=== PATIENT | female | born 2000 | race Hispanic/Latino ===

== ENCOUNTER 2021-11-12 10:17 | Day surgery (SDC) | payer OTHER ==
[2021-11-12 11:06] VITALS: BMI 29.9
[2021-11-12] MEDS ORDERED: hydrALAZINE 20 MG/ML VIAL SLOW IVP PRN (11:30)
[2021-11-12 12:19] LABS: Fetal Membranes Rupture No Membranes Rupture (No Rupture)
== END 2021-11-12 13:40 | disposition home or self-care (01) ==
LOC: CSHLD/OP 10:17
PROVIDERS: ATTEND Student in an Organized Health Care Education/Training Program
DX: O47.1 False labor at or after 37 completed weeks of gestation (principal); Z3A.38 38 weeks gestation of pregnancy
CPT/HCPCS: 84112; 99284

== ENCOUNTER 2021-11-12 20:38 | Inpatient (IN) | payer MEDICAID, OTHER, SELFPAY ==
[2021-11-12 22:19] VITALS: BMI 32.8
[2021-11-12] MEDS ORDERED: Acetaminophen 500 MG TAB PO PRN (22:26)
[2021-11-12] MEDS ORDERED: hydrALAZINE 20 MG/ML VIAL SLOW IVP PRN ×2 (22:26→23:41)
[2021-11-12] MEDS ORDERED: Promethazine HCl 25 MG/ML VIAL IM PRN (22:26)
[2021-11-12] MEDS ORDERED: Ondansetron PF 4 MG/2 ML Vial IVP PRN (22:26)
[2021-11-12] MEDS ORDERED: Diphenoxylate HCl/Atropine Tablet PO PRN (22:45)
[2021-11-12] MEDS ORDERED: Carboprost 250 MCG/ML AMP IM PRN (22:45)
[2021-11-12] MEDS ORDERED: Misoprostol 200 MCG TAB PR PRN (22:45)
[2021-11-12] MEDS ORDERED: Methylergonovine 0.2 MG/ML VIAL IM PRN (22:45)
[2021-11-12] MEDS ORDERED: Ibuprofen 800 MG TAB PO PRN (22:45)
[2021-11-12] MEDS ORDERED: Lidocaine 1% (PF) 30 ML VIAL SC PRN (22:45)
[2021-11-12] MEDS ORDERED: NS w/ Oxytocin 30 units 500 ML IV SCH (23:00)
[2021-11-12 23:26] LABS: Hemoglobin 13.8 g/dL (12.0-15.5); Mean Corpuscular HGB CONC 35.5 g/dL (32.0-36.0); Mean Corpuscular Volume 84.6 fl (81.6-98.3); Mean Platelet Volume 12.4 fl (7.4-10.4); Platelet Count 191 10x3/uL (150-450); RBC Distribution Width 13.3 % (11.5-14.5)
[2021-11-12] MEDS ORDERED: Lorazepam 2 MG/ML VIAL SLOW IVP PRN (23:41)
[2021-11-12] MEDS ORDERED: Labetalol HCl 100 MG/20 ML VIAL SLOW IVP PRN ×2 (23:41)
[2021-11-12] MEDS ORDERED: Calcium Gluc 4.6 MEQ/10 ML (100 MG/ML) SLOW IVP PRN (23:41)
[2021-11-12] MEDS ORDERED: Magnesium Sulfate 20 gm/500 ml 20 GM/500 ML BAG IVPB SCH (23:45)
[2021-11-12] MEDS ORDERED: hydrALAZINE 20 MG/ML VIAL ONE (23:48)
[2021-11-12] MEDS ORDERED: Magnesium Sulfate 20 gm/500 ml 20 GM/500 ML BAG ONE (23:48)
[2021-11-12 23:56] LABS: Hep B Surf Ag Non-Reactive S/CO (NonReactive); Syphilis Antibody Nonreactive (Nonreactive); Syphilis Antibody Index 0.03 S/CO (<1.00 Non-Reactive)
[2021-11-13] LABS: HBSAg Index 0.17 S/CO (0-0.99)
[2021-11-13 00:34] LABS: ALT (SGPT) 17 U/L (8-55); AST (SGOT) 20 U/L (5-34); Albumin 3.5 g/dL (3.5-5.0); Alkaline Phosphatase 226 U/L (40-110); Anion Gap 18 mmol/L (10-20); BUN (Urea Nitrogen) 12 mg/dL (7.0-18.7); Bilirubin, Total 0.5 mg/dL (0.2-1.2); Calc. Creatinine Clearance 145 mL/min (70-130); Calcium 9.3 mg/dL (7.8-10.44); Carbon Dioxide 12 mmol/L (22-29); Chloride 111 mmol/L (98-107); Estimated GFR 119; Globulin 3.6 g/dL (2.4-3.5); Glucose 116 mg/dL (70-105); Potassium 3.6 mmol/L (3.5-5.1); Protein, Total 7.1 g/dL (6.0-8.3); Sodium 137 mmol/L (136-145)
[2021-11-13] MEDS ORDERED: diphenhydrAMINE 50 MG/ML VIAL IVP SCH (01:15)
[2021-11-13] MEDS ORDERED: Misoprostol 200 MCG TAB ONE (03:14)
[2021-11-13] MEDS ORDERED: Carboprost 250 MCG/ML AMP ONE (03:14)
[2021-11-13] MEDS ORDERED: Tranexamic Acid 1,000 MG/10 ML VIAL ONE (03:15)
[2021-11-13 05:31] LABS: SARS-CoV-2 NAA Rapid Test DETECTED (NotDetected)
[2021-11-13] MEDS ORDERED: diphenhydrAMINE 25 MG CAP PO PRN (07:30)
[2021-11-13] MEDS ORDERED: Milk Of Magnesia 30 ML UDCUP PO PRN (07:30)
[2021-11-13] MEDS ORDERED: Boostrix 0.5 ML (Tdap) VIAL IM ONE (07:30)
[2021-11-13] MEDS ORDERED: Lanolin Ointment 7 GM TUBE TOP PRN (07:30)
[2021-11-13] MEDS ORDERED: HYDROcodone/Acetaminophen 5/325 mg Tablet PO PRN ×2 (07:30)
[2021-11-13] MEDS ORDERED: Bisacodyl 10 MG SUPP PR PRN (07:30)
[2021-11-13] MEDS ORDERED: Benzocaine-Menthol 82.5 ML CAN TOP PRN (07:30)
[2021-11-13] MEDS ORDERED: NS w/ Oxytocin 30 units 500 ML IV SCH (07:30)
[2021-11-13] MEDS ORDERED: Misoprostol 200 MCG TAB VAG PRN (07:30)
[2021-11-13] MEDS ORDERED: hydrALAZINE 20 MG/ML VIAL SLOW IVP PRN (07:30)
[2021-11-13] MEDS ORDERED: Prenatal Vitamin 1 TAB PO SCH (09:00)
[2021-11-13] MEDS: Docusate 100 MG CAP PO SCH (09:34)
[2021-11-13] MEDS: Ferrous Sulfate 325 MG TAB PO SCH ×2 (09:34→18:58)
[2021-11-13] MEDS: Ibuprofen 800 MG TAB PO SCH ×2 (14:21→22:12)
[2021-11-14] MEDS: Ibuprofen 800 MG TAB PO SCH ×3 (06:39→21:40)
[2021-11-14] MEDS ORDERED: HYDROcodone/Acetaminophen 5/325 mg Tablet PO PRN ×2 (07:20)
[2021-11-14] MEDS ORDERED: Bisacodyl 10 MG SUPP PR PRN (07:20)
[2021-11-14] MEDS ORDERED: Lanolin Ointment 7 GM TUBE TOP PRN (07:20)
[2021-11-14] MEDS ORDERED: Ondansetron PF 4 MG/2 ML Vial IVP PRN (07:20)
[2021-11-14] MEDS ORDERED: Milk Of Magnesia 30 ML UDCUP PO PRN (07:20)
[2021-11-14] MEDS ORDERED: Benzocaine-Menthol 82.5 ML CAN TOP PRN (07:20)
[2021-11-14] MEDS ORDERED: hydrALAZINE 20 MG/ML VIAL SLOW IVP PRN (07:20)
[2021-11-14] MEDS ORDERED: Misoprostol 200 MCG TAB VAG PRN (07:20)
[2021-11-14] MEDS ORDERED: Boostrix 0.5 ML (Tdap) VIAL IM ONE (07:20)
[2021-11-14] MEDS: Docusate 100 MG CAP PO SCH ×3 (07:49→21:40)
[2021-11-14] MEDS: Ferrous Sulfate 325 MG TAB PO SCH ×2 (08:38→15:55)
[2021-11-14] MEDS: Prenatal Vitamin 1 TAB PO SCH (08:39)
[2021-11-15] MEDS: Ibuprofen 800 MG TAB PO SCH (05:20)
[2021-11-15] MEDS: Docusate 100 MG CAP PO SCH (08:22)
[2021-11-15] MEDS: Prenatal Vitamin 1 TAB PO SCH (08:23)
[2021-11-15] MEDS: Ferrous Sulfate 325 MG TAB PO SCH (08:34)
[2021-11-15 12:15] VITALS: BP 109/62; TEMP 99
== END 2021-11-15 14:30 | disposition home or self-care (01) | DRG 805 ==
LOC: CSHLD/OP 20:38 → CSHLD 22:53 → CSHANTE 11-14 06:40
PROVIDERS: ADMIT Student in an Organized Health Care Education/Training Program; ATTEND Student in an Organized Health Care Education/Training Program
PROC: 10E0XZZ Delivery of Products of Conception, External Approach (ICD-10-PCS; principal; 2021-11-13)
PROC: 0KQM0ZZ Repair Perineum Muscle, Open Approach (ICD-10-PCS; 2021-11-13)
PROC: 8E0ZXY6 Isolation (ICD-10-PCS; 2021-11-13)
DX: O14.94 Unspecified pre-eclampsia, complicating childbirth (principal); U07.1 COVID-19; Z37.0 Single live birth; O98.53 Other viral diseases complicating the puerperium; O70.1 Second degree perineal laceration during delivery; Z3A.38 38 weeks gestation of pregnancy; O72.1 Other immediate postpartum hemorrhage
CPT/HCPCS: 36415; 51702; 80053; 84156; 85027; 86780; 86850; 86900; 86901; 87340; 99285; J0360; J0595; J1200; J2590; J3475; J3490; U0002